=== PATIENT | male | born 1950 | race Caucasian/White ===

== ENCOUNTER 2024-06-21 05:44 | Day surgery (SDC) | payer MEDICARE ==
[2024-06-21] MEDS ORDERED: CEFAZOLIN 2 GM/100 ML NaCl 2 GM/100 ML IVPB IV SCH (06:00)
[2024-06-21] MEDS ORDERED: Lactated Ringers 1,000 ML IV SCH (06:00)
[2024-06-21 06:41] VITALS: RESP 18
[2024-06-21 06:51] LABS: Absolute Neutrophil Ct (ANC) 6.85 x10^3/uL (1.78-5.38); BASOPHIL % 0.5 % (0.2-1.2); Basophil (Absolute #) 0.05 x10^3/uL (0.01-0.08); Eosinophil % 2.5 % (0.8-7.0); Eosinophil (Absolute #) 0.24 x10^3/uL (0.04-0.54); Hematocrit 45.4 % (40.1-51.0); Hemoglobin 15.2 g/dL (13.7-17.5); IMMATURE GRAN # 0.04 x10^3u/L (0.001-0.031); IMMATURE GRAN % 0.4 % (0.001-0.429); Lymphocyte (Absolute #) 1.54 x10^3/uL (1.32-3.57); Lymphocytes % 16.1 % (21.8-53.1); Mean Cell Volume 100.4 fL (79.0-92.2); Mean Corpuscular Hemoglobin 33.6 pg (25.7-32.2); Mean Corpuscular Hgb Concent. 33.5 g/dL (32.3-36.5); Mean Platelet Volume 10.4 fL (9.4-12.4); Monocyte (Absolute #) 0.83 x10^3/uL (0.30-0.82); Monocytes % 8.7 % (5.3-12.2); Neutrophil % 71.8 % (34.0-67.9); Platelet Count 159 x10^3/uL (163-337); Red Blood Count 4.52 x10^6/uL (4.63-6.08); Red Cell Distribution Width 12.5 % (11.6-14.4); White Blood Count 9.6 x10^3/uL (4.23-9.07)
[2024-06-21] MEDS ORDERED: DIPRIVAN 200 MG/20 ML IV ONE (06:58)
[2024-06-21] MEDS ORDERED: SUBLIMAZE 100 MCG/2 ML ONE (06:58)
[2024-06-21] MEDS ORDERED: Versed 2 MG/2 ML Injection ONE (06:58)
[2024-06-21 07:01] LABS: ALBUMIN 3.8 g/dL (3.5-5.0); ANION GAP 10.3 MEQ/L (5-15); BILIRUBIN,TOTAL 0.5 mg/dL (0.2-1.3); Creatinine 1 0.99 mg/dL (0.66-1.25); EST GLOMERULAR FILTRATION RATE 81.4 ML/MIN; Potassium 4.3 mmol/L (3.5-5.1); Total Protein 7.1 g/dL (6.3-8.2)
[2024-06-21] MEDS ORDERED: Xylocaine 1% Vial 30 ML PF IJ ONE (07:16)
[2024-06-21] MEDS ORDERED: Marcaine Mpf 0.5% Vial 30 Ml ONE (07:16)
[2024-06-21] MEDS ORDERED: Sodium Chloride 0.9% 1000 ML 1,000 ML ONE (07:17)
[2024-06-21 07:18] LABS: Slide Review 1 YES
[2024-06-21] MEDS ORDERED: Quelicin Fliptop 200 MG/10 ML ONE (07:18)
[2024-06-21] MEDS ORDERED: PHENYLEPHRINE HCL ONE (07:27)
[2024-06-21 09:34] VITALS: TEMP 97
[2024-06-21] MEDS: Sodium Chloride 0.9% 10 ML FLUSH Syringe PORT FLUSH PRN (09:40)
[2024-06-21 09:45] VITALS: BP 122/69; PULSE 51; O2SAT 95
--- NOTE | 2024-06-22 19:24 | OP ---
SURGERY DATE/TIME: 06/21/2024 1902 - 0626 PREOPERATIVE DIAGNOSES: 1) Osteomyelitis. 2) Ingrowing toenail. 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 POSTOPERATIVE DIAGNOSES: 1) Osteomyelitis. 2) Ingrowing toenail. 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 PROCEDURE: Disarticulation first hallux at level of metatarsophalangeal joint right great toe. SURGEON: Kartik Lafleur DPM SHORE WORKER: Reece Lou NP ANESTHESIA: General, plus a postoperative Peralta block injected consisting of 20 mL of a 1:1 mixture of 1% lidocaine plain and 0.5% bupivacaine plain. HEMOSTASIS: A pressure dressing. ESTIMATED BLOOD LOSS: Approximately 10 mL. MATERIALS: 4-0 Monocryl, 3-0 nylon. INDICATIONS: The patient is a very pleasant 73-year-old male who presented to my service for an ingrowing toenail. The patient did have some indications on that visit of some peripheral vascular disease, however, more concerning secondary to his neuropathy and the timeline, patient was deemed an appropriate candidate for further followup. The patient had chemotherapy which resulted in neuropathy and numbness to his feet. He did have a 6 month history of ingrown toenails and, with his posterior tibial artery being intact, however, monophasic dorsalis pedis, we decided to proceed with the procedure. When removing the toenail, there did appear to be a positive probe to bone at the distal tip of the hallux. This was sent for x-rays showing some destructive changes to the bone and was determined for advanced imaging. Once that occurred, a bone scan was obtained demonstrating some fairly sensitive indications of osteomyelitis and options were discussed with the patient. Initially, patient opted for salvage, however, grew frustrated with the idea of a 6 to 8 week course of IV antibiotics to potentially have to go forward with the amputation anyway due to the success rates. The patient decided to proceed with surgical intervention at that time. The patient has been made aware of all risks, complications, and benefits of surgical intervention at this time including, but not limited to, infection, hematoma, seroma, possibility of delayed wound healing, non-wound healing, and possible need for further surgical intervention at a later date. Vascular studies were obtained to assess the patient's vascular status. If patient does have a hard time healing this, we will refer to Vascular. However, his posterior tibial is his dominant blood supply and appears to be adequate for wound healing at this time. From that standpoint, no guarantees were provided as to the outcome. Plenty of time was allowed for the patient to ask questions which were answered to his apparent satisfaction. It was at this time we decided to proceed. DESCRIPTION OF PROCEDURE AND FINDINGS: The patient was brought into the operating room and placed on the operating room table in the supine position. At this time, general anesthesia was administered until the patient was adequately sedated. Following this, the right lower extremity was prepped and draped in the typical sterile fashion and lowered onto the surgical field. At this time, attention was directed to the first digit of the right great toe where a medial racket incision was planned utilizing a skin marker. A time-out was called and, once this was performed, a 10 blade was utilized to make an incision to the level of bone circumferential and perpendicular to the skin edges, saving enough skin on the plantar flap for closure. Once this was performed, a disarticulation was performed of the hallux of the right great toe. This was handed off the field for pathological assessment. Once this was performed, 1000 mL of Bactisure was utilized to flush the site and then 500 mL of sodium chloride was then utilized to flush the site. Once this was performed, any dog ears that were anticipated during closure were resected. Closure took place utilizing 4-0 Monocryl for deep layered closure as well as 3-0 nylon for skin closure in a horizontal mattress-type fashion. Following this, a dressing consisting of Betadine, Adaptic, 4 x 4, Kerlix, ABD, and Tawanda was applied to patient's right lower extremity. The patient was then reversed from anesthesia and returned to the postoperative anesthesia care unit with vital signs stable and vascular status intact. The patient handled the anesthesia as well as the procedure without significant complication. Postoperative orders are as indicated in the patient's discharge chart.
== END 2024-06-21 09:55 | disposition home or self-care (01) ==
LOC: SDC 05:44
PROVIDERS: ATTEND Podiatrist Foot & Ankle Surgery
DX: M86.9 Osteomyelitis, unspecified (principal); L60.0 Ingrowing nail; G62.0 Drug-induced polyneuropathy; T45.1X5A Adverse effect of antineoplastic and immunosuppressive drugs, initial encounter
CPT/HCPCS: 01470; 28820; 36415; 80053; 85025; 88305; 88311; 93005; 99100; A6260; J0330; J1642; J2250; J2371; J2704; J3010